=== PATIENT | female | born 2005 | race Caucasian/White ===

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

== ENCOUNTER 2023-04-13 16:47 | Emergency (ER) | payer MEDICAID ==
[~2023-04-13] VITALS: Ht 162.6 cm; Wt 75.0 kg
[~2023-04-13 16:47] MED LIST changes: +PYRI25TA4 PO
[2023-04-13 16:52] VITALS: BP 112/76; PULSE 115; RESP 18; TEMP 97.8; O2SAT 100
== END 2023-04-13 18:58 | disposition left against medical advice (07) ==
LOC: ER 16:48
DX: Z00.8 Encounter for other general examination (principal); Z53.21 Procedure and treatment not carried out due to patient leaving prior to being seen by health care provider
CPT/HCPCS: 99281

== ENCOUNTER 2023-08-14 11:37 | Emergency (ER) | payer MEDICAID ==
[~2023-08-14] VITALS: Ht 162.6 cm; Wt 72.7 kg
[2023-08-14 11:58] VITALS: BP 105/77; PULSE 76; RESP 18; O2SAT 98
[2023-08-14] MEDS ORDERED: CLIN300C54 PO (12:11)
[2023-08-14 13:06] VITALS: TEMP 97.7
== END 2023-08-14 13:09 | disposition home or self-care (01) ==
LOC: ER 11:37
DX: K04.7 Periapical abscess without sinus (principal); F12.90 Cannabis use, unspecified, uncomplicated; Z88.8 Allergy status to other drugs, medicaments and biological substances; Z79.899 Other long term (current) drug therapy
CPT/HCPCS: 99283

== ENCOUNTER 2023-12-18 22:22 | Emergency (ER) | payer MEDICAID | END 2023-12-18 23:44 | disposition left against medical advice (07) | LOC: ER 22:22 | DX: T63.301A Toxic effect of unspecified spider venom, accidental (unintentional), initial encounter (principal); Z53.21 Procedure and treatment not carried out due to patient leaving prior to being seen by health care provider; Y92.89 Other specified places as the place of occurrence of the external cause ==

== ENCOUNTER 2024-11-21 03:17 | Emergency (ER) | payer MEDICAID ==
[~2024-11-21] VITALS: Ht 160 cm; Wt 79.3 kg
[2024-11-21 03:19] VITALS: BP 132/76; PULSE 116; O2SAT 100
--- NOTE | 2024-11-21 03:42 | Physician Documentation ---
History of Present Illness ~ Chief Complaint: Hand pain Stated Complaint: HAND INJURY Time Seen by MD: 03:42 Primary Medical Doctor: [facility] HPI Patient presents to the emergency room with hand pain after hitting a wall after arguing with her sister. Tetanus within 5 years: No Medication Reconciliation Allergies: Coded Allergies: amoxicillin (Verified Allergy, Unknown, 08/14/23) Scheduled Escitalopram Oxalate (Lexapro), 1 TAB PO DAILY Pip Butox/Pyrethrins/Permeth (Rid Complete Lice Kit), 1 EACH TP ONCE Pyridoxine HCl (Pyridoxine HCl), 1 TAB PO DAILY Past Medical History Past Medical History: No Pertinent History Past Surgical History: orthopedic surgeries Alcohol Use: None Drug Use: marijuana Lives with: Family Lives In: Home Occupation: student, child Review of Systems ROS All review of systems negative except as per HPI Physical Exam Vital Signs: Temperature: 97.9, Source: Temporal, Heart Rate: 116, Respiratory Rate: 19, BP: 132/76, Pulse Oximetry: 100, Weight: 79.350 Oxygen Flow Rate: 0 Physical Exam General: Patient is awake, alert, oriented x4 in no acute distress and well appearing.~ Head: Normocephalic and atraumatic. Eyes: Conjunctival normal. EOMI. PERRL. ENT: Mucous membranes moist. Neck: Supple, trachea is midline. Chest: Clear to auscultation bilaterally without rales, rhonchi, or wheezes. There is no accessory muscle use or retractions. Cardiac: RRR without murmurs, gallops, or rubs. Extremities: Swelling and pain to patient's 2nd MP joint. Movements intact, less than 2nd capillary refill with no breaks in the skin Progress Results/Orders Results/Orders Orders - FRANKLIN LOZA MD, Complete (3vw Min) (11/21/24 04:20) Ortho Orders (11/21/24 05:17) Completed Orders - FRANKLIN LOZA MD, Complete (3vw Min) (11/21/24 04:20) Hydrocodone/Apap 5/325mg Tab (Parker 5/32 (11/21/24 03:24) Ondansetron Disint. Tablet (Zofran Odt T (11/21/24 03:45) Ibuprofen Tablet (Motrin Tablet) (11/21/24 03:45) Medications Received in ER Medications (Trade) Dose Ordered Sig/Marion Route PRN Reason Start Time Stop Time Status Last Admin Dose Admin (Parker 5/325mg tablet) 1 tab ONCE STAT PO 11/21/24 03:24 11/21/24 03:26 DC 11/21/24 03:43 1 TAB (Zofran ODT tablet) 4 mg ONCE ONCE PO 11/21/24 03:45 11/21/24 03:46 DC 11/21/24 03:57 4 MG (Motrin tablet) 800 mg ONCE ONCE PO 11/21/24 03:45 11/21/24 03:46 DC 11/21/24 03:57 800 MG Vital Signs 11/21/24 11/21/24 03:19 03:43 Temp 97.9 Pulse 116 Resp 19 14 B/P (MAP) 132/76 Pulse Ox 100 O2 Flow Rate 0 EKG/XRAY/CT/US/VASC/MRI Bone/Soft Tissue X-Ray (Ext.) : Additional Comment Fracture of distal head of the 2nd MP joint with some fragmentation. No dislocations or foreign bodies Medical Decision Making Findings Patient presented to the emergency room with hand pain after punching a wall. Differentials include but are not limited to fractures, dislocations, foreign bodies therefore x-ray performed which shows fracture. No breaks in skin I do not feel patient requires antibiotics for open fracture. That has fragmentation along with joint involvement therefore we will refer to orthopedist. Departure Disposition: HOME / SELF CARE / HOMELESS Impression: Primary Impression: Fracture of hand Condition: Stable Discharge Instructions: Fracture, Hand Additional Instructions: Ibuprofen and Tylenol can be taken together for pain. Ice may be of benefit with frostbite precautions. Call orthopedist to arrange for follow up as there is fragmentation and joint involvement. Referrals: NO PRIMARY CARE PROVIDER (PCP) EPI VERDUZCO Jr., MD Education Educated: Patient Educated regarding: diagnosis, treatment, need for follow up Signature Scribe Signature: No scribe Attestation: The note accurately reflects work and decisions made by me.Franklin Loza MD 11/21/24 05:22 FRANKLIN LOZA MD November 21, 2024 03:42
[2024-11-21 03:43] VITALS: RESP 14
[2024-11-21] MEDS: HYDROcodone/acetaminophen 5mg/325mg tablet PO STA (03:43)
[2024-11-21] MEDS: ondansetron 4mg rapidly disintigrating tab PO ONE (03:57)
[2024-11-21] MEDS: ibuprofen tablet 400 MG TABLET PO ONE (03:57)
--- NOTE | 2024-11-21 05:28 | RADIOLOGY REPORT ---
EXAM: XR Right Hand Complete, 3 or More Views CLINICAL INDICATION: HAND PAIN RIGHT TECHNIQUE: Frontal, lateral and oblique views of the right hand. COMPARISON: None FINDINGS: BONES/JOINTS: Comminuted mildly displaced fracture of the 2nd metacarpal head. Soft tissue swellin g. No dislocation. SOFT TISSUES: See above. OTHER FINDINGS: . . IMPRESSION: Comminuted mildly displaced fracture of the 2nd metacarpal head. Soft tissue swelling.
[2024-11-21 06:03] VITALS: TEMP 97.9
== END 2024-11-21 06:07 | disposition home or self-care (01) ==
LOC: ER 03:17
DX: S62.91XA Unspecified fracture of right hand, initial encounter for closed fracture (principal); F12.90 Cannabis use, unspecified, uncomplicated; Z88.1 Allergy status to other antibiotic agents; Z79.899 Other long term (current) drug therapy; W22.01XA Walked into wall, initial encounter; Y93.89 Activity, other specified; Y92.89 Other specified places as the place of occurrence of the external cause; Y99.8 Other external cause status
CPT/HCPCS: 29130; 73130; 99284; A6449